=== PATIENT | female | born 1960 | race Caucasian/White ===

== ENCOUNTER → 2016-08-16 | Outpatient (CLI) | payer OTHER | LOC: MHCPAIN 09:49 | DX: G89.29 Other chronic pain (principal); M54.12 Radiculopathy, cervical region; M47.812 Spondylosis without myelopathy or radiculopathy, cervical region | CPT/HCPCS: G0463 ==

== ENCOUNTER → 2016-09-18 | Outpatient (CLI) | payer OTHER | LOC: MHCPAIN 10:57 | DX: G89.29 Other chronic pain (principal); M50.90 Cervical disc disorder, unspecified, unspecified cervical region; M54.12 Radiculopathy, cervical region | CPT/HCPCS: G0463; J1040; Q9967 ==

== ENCOUNTER → 2016-09-19 | Outpatient (CLI) | payer OTHER | LOC: MHCPAIN 10:13 | DX: M50.123 Cervical disc disorder at C6-C7 level with radiculopathy (principal); M48.02 Spinal stenosis, cervical region | CPT/HCPCS: J1040; J1100; Q9967 ==

== ENCOUNTER → 2016-10-08 | Outpatient (CLI) | payer OTHER | LOC: MHCPAIN 10:53 | DX: G89.29 Other chronic pain (principal); M50.10 Cervical disc disorder with radiculopathy, unspecified cervical region | CPT/HCPCS: G0463 ==

== ENCOUNTER → 2017-04-11 | Outpatient (CLI) | payer OTHER | LOC: COL.RAD 13:49 | DX: R22.32 Localized swelling, mass and lump, left upper limb (principal) ==

== ENCOUNTER 2020-02-19 13:11 | Emergency (ER) | payer BC, OTHER ==
[~2020-02-19] VITALS: Ht 160 cm; Wt 90.0 kg
[2020-02-19 13:27] VITALS: TEMP 98.6
[2020-02-19] MEDS ORDERED: VITAMIN D31000 I1 PO (13:43)
[2020-02-19] MEDS ORDERED: NOVOLOG 100U100 U/M1 SQ (13:44)
[2020-02-19] MEDS ORDERED: VITAMIN C500 MG (13:44)
[2020-02-19] MEDS ORDERED: PRINIVIL10 MG PO (13:46)
[2020-02-19] MEDS ORDERED: TRESIBA FL100 UNIT/1 SQ (13:46)
[2020-02-19] MEDS ORDERED: LIPITOR20 MG PO (13:46)
[2020-02-19] MEDS ORDERED: FARXIGA10 PO (13:47)
[2020-02-19] MEDS ORDERED: GLUCOTROL10 MG PO (13:47)
[2020-02-19 14:10] LABS: HEMATOCRIT 40.4 % (37.0-47.0); HEMOGLOBIN 13.7 g/dl (12.5-16.0); MEAN CELL VOLUME 87 fl (80.0-100.0); MEAN CORPUSCULAR HEMOGLOBIN 30 pg (27.0-31.0); MEAN CORPUSCULAR HGB CONC 34 g/dl (33.0-37.0); MEAN PLATELET VOLUME 9.7 fl (7.4-10.4); PLATELET COUNT 200 K/mm3 (130-400); RED BLOOD COUNT 4.63 M/mm3 (4.10-5.30); REDCELL DISTRIBUTION WIDTH-CV 11.9 % (11.5-14.5)
[2020-02-19 14:17] LABS: BILIRUBIN,TOTAL 0.5 mg/dL (0.0-1.0); C-REACTIVE PROTEIN 2.8 mg/dL (0.0-0.9); CALCIUM 9.3 mg/dL (8.4-10.2); CREATININE, serum 0.52 (0.52-1.25); POTASSIUM 3.9 mmol/L (3.4-5.0); TOTAL PROTEIN 7.3 gm/dL (6.4-8.2)
[2020-02-19 14:48] LABS: COLLECTION METHOD CLEAN CATCH
[2020-02-19 14:48] LABS: BAND 1 % (0-10); EOSINOPHIL 1 % (0-4); LYMPHOCYTE 30 % (20.0-51.0); NEUTROPHILS 65 % (42.0-75.2)
[2020-02-19 14:50] LABS: PLATELET ESTIMATE NORMAL (NORMAL)
[2020-02-19 14:53] LABS: MUCOUS Present /lpf; PH 6 (5-8); SQUAMOUS EPITHELIAL 0-2 /hpf; URINE APPEARANCE Clear; URINE BACTERIA None Seen /hpf; URINE BILIRUBIN Negative (NEGATIVE); URINE BLOOD Negative (NEGATIVE); URINE COLOR Yellow; URINE GLUCOSE 3+ (NEGATIVE); URINE KETONE Negative (NEGATIVE); URINE LEUKOCYTE ESTERASE Negative (NEGATIVE); URINE NITRATE Negative (NEGATIVE); URINE PROTEIN(semi-quant) Negative (NEGATIVE); URINE RBC 0-2 /hpf; URINE UROBILINOGEN Negative (NEGATIVE)
[2020-02-19] MEDS ORDERED: TUSS PO (15:09)
[2020-02-19 15:24] VITALS: BP 119/61; PULSE 77
== END 2020-02-19 15:28 | disposition home or self-care (01) ==
LOC: COL.ER 13:11
PROVIDERS: Emergency Medicine
DX: U07.1 COVID-19 (principal); E11.9 Type 2 diabetes mellitus without complications; Z90.49 Acquired absence of other specified parts of digestive tract; Z90.710 Acquired absence of both cervix and uterus; Z79.4 Long term (current) use of insulin
CPT/HCPCS: J1885; J7030

== ENCOUNTER → 2020-05-18 | Outpatient (CLI) | payer BC, OTHER ==
[~2020-05-18] MED LIST: FARXIGA10 PO; GLUCOTROL10 MG PO; LIPITOR20 MG PO; NOVOLOG 100U100 U/M1 SQ; PRINIVIL10 MG PO; TRESIBA FL100 UNIT/1 SQ; TUSS PO; VITAMIN C500 MG; VITAMIN D31000 I1 PO
== END ==
LOC: MC.RAD 16:02
DX: Z12.31 Encounter for screening mammogram for malignant neoplasm of breast (principal)